=== PATIENT | female | born 1975 | race Caucasian/White ===

== ENCOUNTER 2018-05-21 14:32 | Observation (INO) | payer SELFPAY ==
[~2018-05-21] VITALS: Ht 167.6 cm; Wt 81.6 kg
[2018-05-21] MEDS ORDERED: LABETALOL HCL 5 MG/ML 20ML VIAL IV STA (14:46)
[2018-05-21] MEDS ORDERED: LABETALOL HCL 5 MG/ML 20ML VIAL IV ONE (15:00)
[2018-05-21] MEDS ORDERED: ASPIRIN 81 MG CHEW TAB PO ONE (15:00)
[2018-05-21 15:25] LABS: BASOPHILS % 0.5 % (0.0-1.0); EOSINOPHILS # (AUTO) 0.3 (0.0-0.4); EOSINOPHILS % 3.6 % (0.0-6.0); HEMATOCRIT 43.2 % (34.2-44.1); HEMOGLOBIN 14.7 g/dL (12.0-16.0); LYMPHOCYTES # (AUTO) 2.4 (1.0-3.2); LYMPHOCYTES % 32.6 % (18.0-39.1); MEAN CORPUSCULAR HEMOGLOBIN 32.7 pg (28-32); MEAN CORPUSCULAR VOLUME 96.2 fL (81-99); MONOCYTES # (AUTO) 0.4 (0.2-0.8); MONOCYTES % 5.2 % (4.4-11.3); NEUTROPHILS # (AUTO) 4.2 (2.1-6.9); NEUTROPHILS % 57.8 % (38.7-80.0); PLATELET COUNT 275 x10e3/uL (140-360); RED BLOOD COUNT 4.49 x10e6/uL (3.6-5.1); RED CELL DISTRIBUTION WIDTH 13.2 % (11.7-14.4)
[2018-05-21 15:33] LABS: INR 0.95; PROTHROMBIN TIME 11.9 seconds (11.9-14.5)
[2018-05-21 15:34] LABS: CLARITY,URINE SL CLOUDY (CLEAR); COLOR,URINE YELLOW (YELLOW); LEUKOCYTE ESTERASE ,URINE NEGATIVE (NEGATIVE); NITRITE,URINE NEGATIVE (NEGATIVE); PROTEIN,URINE DIPSTICK NEGATIVE (NEGATIVE)
[2018-05-21 15:34] LABS: PARTIAL THROMBOPLASTIN TIME 27.8 seconds (23.8-35.5)
[2018-05-21 15:35] LABS: BILIRUBIN,URINE NEGATIVE (NEGATIVE); KETONES,URINE NEGATIVE (NEGATIVE); PREGNANCY TEST, URINE NEGATIVE (NEGATIVE); URINE UROBILINOGEN 0.2 mg/dL (0.2 - 1)
[2018-05-21 15:42] LABS: ALANINE AMINOTRANSFERASE 24 IU/L (0-55); ALBUMIN 4.5 g/dL (3.5-5.0); ALBUMIN/GLOBULIN RATIO 1.2 (0.8-2.0); ALKALINE PHOSPHATASE 114 IU/L (40-150); ANION GAP 18.4 mmol/L (8-16); BLOOD UREA NITROGEN 12 mg/dL (7-26); BUN/CREATININE RATIO 15 (6-25); CALCIUM 10.2 mg/dL (8.4-10.2); CARBON DIOXIDE 24 mmol/L (22-29); CHLORIDE 104 mmol/L (98-107); CREATINE KINASE 206 IU/L (29-168); CREATININE, SERUM 0.81 mg/dL (0.57-1.11); EST GLOMERULAR FILTRATION RATE > 60 ML/MIN (60-); GLUCOSE 104 mg/dL (74-118); POTASSIUM 4.4 mmol/L (3.5-5.1); SODIUM 142 mmol/L (136-145)
[2018-05-21 15:53] LABS: EPITHELIAL CELLS,URINE FEW /LPF; RBC,URINE 0-5 /HPF (0-5)
[2018-05-21] MEDS ORDERED: HYDRALAZINE HCL 25 MG TAB PO ONE (16:00)
[2018-05-21 16:01] LABS: THYROID STIMULATING HORMONE 1.374 uIU/mL (0.350-4.940)
[2018-05-21] MEDS ORDERED: SODIUM CHLORIDE 0.9% 1000ML 1,000 ML IV SCH ×2 (16:15)
--- NOTE | 2018-05-21 16:32 | Diagnostic Imaging Report ---
EXAMINATION: CHEST SINGLE (NOT PORTABLE) INDICATION: \S\ERMD ORDER \S\[id number] \S\[id number] \S\Y COMPARISON: None FINDINGS: AP view TUBES and LINES: None. LUNGS: Lungs are well inflated. Lungs are clear. There is no evidence of pneumonia or pulmonary edema. PLEURA: No pleural effusion or pneumothorax. HEART AND MEDIASTINUM: The cardiomediastinal silhouette is unremarkable. BONES AND SOFT TISSUES: No acute osseous lesion. Soft tissues are unremarkable. UPPER ABDOMEN: No free air under the diaphragm. IMPRESSION: No acute thoracic abnormality. Signed by: DR. Issac Mendoza MD on 05/21/2018 4:29 PM
[2018-05-21] MEDS ORDERED: SODIUM CHLORIDE FLUSH 10 ML SYR INJ PRN (17:30)
[2018-05-21] MEDS ORDERED: MORPHINE SULFATE 2 MG/ML SYR IV PRN (17:30)
[2018-05-21] MEDS ORDERED: NITROGLYCERIN 0.4 MG SUBL SL PRN (17:30)
[2018-05-21] MEDS: METOPROLOL TARTRATE 25 MG TAB PO SCH (18:16)
[2018-05-21 22:30] VITALS: BP 136/86
[2018-05-21 23:50] LABS: CREATINE KINASE 149 IU/L (29-168)
[2018-05-22] VITALS (7 sets, daily range): BP systolic 108–136; BP diastolic 68–86
--- NOTE | 2018-05-22 03:58 | History and Physical ---
PRIMARY CARE DOCTOR: None. HISTORY OF PRESENT ILLNESS: Ms. Obando is a pleasant 43-year-old female with chest pain. Patient with chest pain for 2 days, slightly to left side, also midsternal. No radiation pattern. Moderate severity. She came to emergency room. Blood pressure was 202/128 with 88 heart rate. Chest x-ray was unremarkable. She was admitted to observation. PAST MEDICAL HISTORY 1. History of SVT and ablation in 2003. 2. Anxiety. MEDICATIONS: Medication list reviewed per electronic record. ALLERGIES: NO KNOWN DRUG ALLERGIES. FAMILY HISTORY: Noncontributory. SOCIAL HISTORY: The patient smokes 1 pack a day from age 14 to 43. Denies heavy alcohol. No drugs. She is not working now. REVIEW OF SYSTEMS: Ten-point review of systems otherwise unremarkable and reviewed in detail. OBJECTIVE VITAL SIGNS: Afebrile, vital signs noted per electronic record. GENERAL: No acute distress. Alert and calm. HEENT: Normocephalic, atraumatic. Throat midline. NECK: Supple. LUNGS: Bilateral air entry, clear. CARDIOVASCULAR: S1, S2. No murmurs, rubs or gallops. ABDOMEN: Soft, nontender. EXTREMITIES: No clubbing. No cyanosis. There is no edema. INTEGUMENT: No rash or purpura. LABS: CK 206. Albumin 4.5. TSH normal. Troponin negative times 2. IMPRESSION 1. Atypical chest pain. 2. High blood pressure, possible hypertension. 3. Supraventricular tachycardia, status post ablation in 2003. 4. History of anxiety reported. 5. Smoking. PLAN: Continue to rule out cardiac enzymes for OH. Serial EKGs. At this time, patient will continue on medications of aspirin and beta blockers. Nitroglycerin as well. Smoking cessation highly recommended. Job#: [id number]
[2018-05-22 06:03] LABS: BASOPHILS % 0.7 % (0.0-1.0); EOSINOPHILS # (AUTO) 0.2 (0.0-0.4); EOSINOPHILS % 3.4 % (0.0-6.0); HEMATOCRIT 39.5 % (34.2-44.1); HEMOGLOBIN 13.4 g/dL (12.0-16.0); LYMPHOCYTES # (AUTO) 2.5 (1.0-3.2); LYMPHOCYTES % 42.7 % (18.0-39.1); MEAN CORPUSCULAR HEMOGLOBIN 32.6 pg (28-32); MEAN CORPUSCULAR HGB CONC 33.9 g/dL (31-35); MEAN CORPUSCULAR VOLUME 96.1 fL (81-99); MONOCYTES # (AUTO) 0.4 (0.2-0.8); MONOCYTES % 7.2 % (4.4-11.3); NEUTROPHILS # (AUTO) 2.7 (2.1-6.9); NEUTROPHILS % 45.8 % (38.7-80.0); PLATELET COUNT 266 x10e3/uL (140-360); RED BLOOD COUNT 4.11 x10e6/uL (3.6-5.1); RED CELL DISTRIBUTION WIDTH 13.2 % (11.7-14.4)
[2018-05-22 06:19] LABS: ANION GAP 13.9 mmol/L (8-16); BLOOD UREA NITROGEN 11 mg/dL (7-26); BUN/CREATININE RATIO 15 (6-25); CALCIUM 9.3 mg/dL (8.4-10.2); CARBON DIOXIDE 22 mmol/L (22-29); CHLORIDE 107 mmol/L (98-107); CHOL/HDL RATIO 3.7 (3.0-3.6); CHOLESTEROL 282 MD/DL (0-199); CREATININE, SERUM 0.72 mg/dL (0.57-1.11); EST GLOMERULAR FILTRATION RATE > 60 ML/MIN (60-); GLUCOSE 84 mg/dL (74-118); HDL CHOLESTEROL 76 MG/DL (40-60); LDL CHOLESTEROL 166 MG/DL (60-130); POTASSIUM 3.9 mmol/L (3.5-5.1); SODIUM 139 mmol/L (136-145); TRIGLYCERIDES 200 MG/DL (0-149)
[2018-05-22] MEDS: METOPROLOL TARTRATE 25 MG TAB PO SCH (08:41)
[2018-05-22] MEDS ORDERED: NICOTINE 7 MG PATCH TOP SCH (09:00)
[2018-05-22] MEDS ORDERED: ASPIRIN 325 MG TAB EC PO SCH (09:00)
--- NOTE | 2018-05-22 23:12 | Discharge Summary ---
PRIMARY CARE DOCTOR: None. FINAL DIAGNOSES 1. Atypical chest pain. 2. Dyslipidemia. 3. Likely anxiety. [facility] DEVELOPER: Dr. Lopez, cardiology. PROCEDURES/STUDIES PERFORMED: None. HISTORY: Per [facility] and [facility]. HOSPITAL COURSE: Patient was admitted. Her troponins were negative times 3. She does not have acute myocardial infarction. Her triglyceride is elevated at 200. Her total cholesterol is 282. LDL is 166. Patient was informed of these results and she needed to establish herself with a new primary care doctor. Smoking cessation was advised as well. Initially, patient was hypertensive. However, with only metoprolol 25 mg, currently, her blood pressure is normal. Therefore, I do not think she has hypertension. Her elevated blood pressure was due to anxiety and therefore, blood pressure medicine is not needed. Patient was evaluated by cardiology as well. CONDITION ON DISCHARGE: Stable. DISCHARGE MEDICATION: Please see medication reconciliation form. Patient was seen and examined today. Job#: [id number]
== END 2018-05-22 16:10 | disposition home or self-care (01) ==
LOC: ER 14:32 → ERHOLD 18:02 → IMCU 22:26
PROVIDERS: ADMIT Internal Medicine; ATTEND Internal Medicine
DX: R07.89 Other chest pain (principal); I16.9 Hypertensive crisis, unspecified; F17.210 Nicotine dependence, cigarettes, uncomplicated; I47.1 Supraventricular tachycardia; E78.5 Hyperlipidemia, unspecified; Z82.49 Family history of ischemic heart disease and other diseases of the circulatory system; F41.9 Anxiety disorder, unspecified
CPT/HCPCS: 36415 ×2; 71045; 80048; 80053; 80061; 81001; 81025; 82550 ×2; 82553 ×2; 84443; 84484 ×2; 85025 ×2; 85610; 85730; 93005; 93306; 99284; G0378 ×2; J7030